=== PATIENT | female | born 1985 | race Caucasian/White ===

== ENCOUNTER 2018-09-20 19:35 | Emergency (ER) | payer BC ==
[2018-09-20] MEDS ORDERED: Lidocaine 1% (PF) 30 ML VIAL ONE (19:59)
[2018-09-20] MEDS ORDERED: Fentanyl 100 MCG/2 ML VIAL ONE (20:13)
[2018-09-20] MEDS ORDERED: CEFAZOLIN 1 GM VIAL ONE (20:13)
--- NOTE | 2018-09-20 20:21 | RAD ---
RIGHT INDEX FINGER TWO VIEWS: History: 32-year-old female with history to index finger from trauma, smashed right finger in a gate. FINDINGS: There is near amputation of the right index finger with a very markedly displaced irregular fracture through the distal portion of the middle phalanx with evidence for probable open fracture. There are some small displaced fracture fragments. IMPRESSION: Open markedly displaced minimally comminuted fracture of the middle phalanx of the index finger with marked malalignment and resultant deformity. POS: RRE
[2018-09-20] MEDS ORDERED: Gentamicin Sulfate 300 MG in Sodium Chloride 0.9% 100 ML IVPB ONE (20:30)
[2018-09-20] MEDS ORDERED: Morphine 4 MG/ML VIAL ONE (20:56)
== END 2018-09-20 21:36 | disposition short-term general hospital (02) ==
LOC: ERS 19:35
DX: S62.620B Displaced fracture of middle phalanx of right index finger, initial encounter for open fracture (principal); W22.8XXA Striking against or struck by other objects, initial encounter
CPT/HCPCS: 12001; 96372; J0690; J1580; J2001; J2270; J3010; J7050